=== PATIENT | male | born 1975 | race Caucasian/White ===

== ENCOUNTER → 2017-02-17 | Outpatient (CLI) | payer OTHER | LOC: KOH-I 09:00 | DX: R74.8 Abnormal levels of other serum enzymes (principal) | CPT/HCPCS: 76705 ==

== ENCOUNTER → 2021-06-01 | Outpatient (CLI) | payer OTHER | LOC: EXRD 08:55 | DX: K76.0 Fatty (change of) liver, not elsewhere classified (principal) | CPT/HCPCS: 76705 ==

== ENCOUNTER → 2021-07-08 | Outpatient (CLI) | payer OTHER | LOC: EXRD 15:16 | DX: R79.9 Abnormal finding of blood chemistry, unspecified (principal) | CPT/HCPCS: 76775 ==